=== PATIENT | male | born 1990 | race Caucasian/White ===

== ENCOUNTER 2019-07-09 11:23 | Emergency (ER) | payer MEDICAID ==
[~2019-07-09] VITALS: Ht 165.1 cm; Wt 63.5 kg
[2019-07-09 11:43] VITALS: BP 119/75
[2019-07-09] MEDS ORDERED: IBUPROFEN 600 MG TAB PO ONE (11:50)
[2019-07-09] MEDS ORDERED: ACETAMINOPHEN EXTRA STRENGTH 500 MG TAB PO ONE (11:50)
[2019-07-09] MEDS ORDERED: ACETAMINOPHEN EXTRA STRENGTH 500 MG TAB ONE (11:52)
--- NOTE | 2019-07-09 12:30 | NUR ---
pt arrived to ed with mother c/o rash, sore thorat, muscle tihghness on bilateral legs x 1month. pt rates pain level of 8/10. lung sounds clear all throughout. no resp distress. vs stable. a&o x 4. rashes all throughout body. nka denies pmh.
[2019-07-09 12:37] VITALS: BP 119/75
--- NOTE | 2019-07-09 12:37 | NUR ---
Patient discharged with v/s stable. Written and verbal after care instructions given and explained. Patient alert, oriented and verbalized understanding of instructions. Ambulatory with steady gait. All questions addressed prior to discharge. ID band removed. Patient advised to follow up with PMD. Rx of motrin, hydrocortisone, bactrium, amoxicillin given. Patient educated on indication of medication including possible reaction and side effects. Opportunity to ask questions provided and answered.
== END 2019-07-09 12:37 | disposition home or self-care (01) ==
LOC: MED 11:23
DX: J02.8 Acute pharyngitis due to other specified organisms (principal); B96.89 Other specified bacterial agents as the cause of diseases classified elsewhere; R21 Rash and other nonspecific skin eruption
CPT/HCPCS: 99283